=== PATIENT | female | born 1980 | race Hispanic/Latino ===

== ENCOUNTER 2017-09-10 13:26 | Emergency (ER) | payer SELFPAY ==
[~2017-09-10] VITALS: Ht 157.5 cm; Wt 127.0 kg
[~2017-09-10 13:26] MED LIST: CIPRO500 MG PO
[2017-09-10] MEDS ORDERED: DIPHENHYDRAMINE HCL 25 MG CAP PO ONE (14:15)
[2017-09-10] MEDS ORDERED: DEXAMETHASONE SOD PHOS 10 MG/1 ML VIAL INJ ONE (14:15)
[2017-09-10] MEDS ORDERED: FAMOTIDINE 20 MG TAB PO ONE (14:15)
[2017-09-10 15:32] VITALS: BP 132/101
== END 2017-09-10 15:33 | disposition home or self-care (01) ==
LOC: ER 13:26
DX: L50.0 Allergic urticaria (principal)
CPT/HCPCS: 99283; J1100

== ENCOUNTER 2017-09-12 16:19 | Emergency (ER) | payer SELFPAY ==
[~2017-09-12] VITALS: Ht 157.5 cm; Wt 127.0 kg
[2017-09-12] MEDS ORDERED: DEXAMETHASONE SOD PHOS 10 MG/1 ML VIAL INJ ONE (16:45)
== END 2017-09-12 18:26 | disposition home or self-care (01) ==
LOC: ER 16:19
DX: L50.0 Allergic urticaria (principal)
CPT/HCPCS: 99282; J1100

== ENCOUNTER 2017-11-25 14:01 | Emergency (ER) | payer SELFPAY ==
[~2017-11-25] VITALS: Ht 157.5 cm; Wt 117.9 kg
--- OUTSIDE RECORDS SUMMARY | 2017-11-25 14:03 | XMS REPORT | Continuity of Care Document ---
Author Author [facility] Organization [facility] Address [address] [place] [address] Phone Unavailable Care Team Providers Care Warp Tester Name Role Phone NO, PCP PCP Unavailable Insurance Providers Guarantor Vera Camargo Address [id number] [place] [address] Email NONE Payer María Subscriber's Name Vera Camargo Advance Directives Directive Response Recorded Date/Time Does the patient have an advance directive? No 03/07/15 2:45pm If yes, is advance directive on file with [facility]? No 03/07/15 2:45pm If not on file with [facility] will patient provide a copy? Yes 04/15/16 1:02pm Problems No problem information available. Medications Current Home Medications Medication Dose Units Route Directions Days Qty Instructions Start Date Ciprofloxacin Hcl (Cipro) 500 Mg Tablet 250 Mg Oral Every 12 Hours 7 Days Social History No social history information available. Hospital Discharge Instructions No hospital discharge instruction information available. Plan of Care Discharge Date 09/10/17 3:33pm Disposition HOME, SELF-CARE Condition at Discharge Stable Instructions/Education Provided Allergic Reaction Forms Provided Work/School Excuse Prescriptions See Medication Section Functional Status No functional status information available. Allergies, Adverse Reactions, Alerts No known allergies. Immunizations No immunization information available. Vital Signs Acute Vital Signs Vital Response Date/Time Pulse Pulse Rate (adult) 80 bpm (60 - 90) 09/10/2017 3:32pm Respiratory Rate 18 bpm (12 - 24) 09/10/2017 3:32pm Blood Pressure 132/101 mm Hg 09/10/2017 3:32pm Height 5 ft 2 in 09/10/2017 1:59pm Weight 280 lb 09/10/2017 1:59pm Body Mass Index 51.2 kg/m^2 09/10/2017 1:59pm Results Laboratory Results Test Name Result Units Flags Reference Collection Date/Time Result Date/ Time Comments White Blood Count 8.42 x10e3/uL 4.8-10.8 02/21/2017 4:02/21/2017 5 :05pm Red Blood Count 4.23 x10e6/uL 3.6-5.1 02/21/2017 4:pm 02/21/2017 5: 05pm Hemoglobin 13.4 g/dL 12.0-16.0 02/21/2017 4:02/21/2017 5:05pm Hematocrit 39.4 % 34.2-44.1 02/21/2017 4:02/21/2017 5:05pm Mean Corpuscular Volume 93.1 fL 81-99 02/21/2017 4:02/21/2017 5: 05pm Mean Corpuscular Hemoglobin 31.7 pg 28-32 02/21/2017 4:02/21/2017 5:05pm Mean Corpuscular Hemoglobin Concent 34.0 g/dL 31-35 02/21/2017 4:02/21/2017 5:05pm Red Cell Distribution Width 12.5 % 11.7-14.4 02/21/2017 4:2016 5:05pm Platelet Count 195 x10e3/uL 140-360 02/21/2017 4:02/21/2017 5: 05pm Neutrophils (%) (Auto) 63.2 % 38.7-80.0 02/21/2017 4:02/21/2017 5: 05pm Lymphocytes (%) (Auto) 27.4 % 18.0-39.1 02/21/2017 4:02/21/2017 5: 05pm Monocytes (%) (Auto) 5.6 % 4.4-11.3 02/21/2017 4:02/21/2017 5: 05pm Eosinophils (%) (Auto) 2.6 % 0.0-6.0 02/21/2017 4:02/21/2017 5: 05pm Basophils (%) (Auto) 0.5 % 0.0-1.0 02/21/2017 4:02/21/2017 5:05pm IM GRANULOCYTES % 0.7 % 0.0-1.0 02/21/2017 4:02/21/2017 5:05pm Neutrophils # (Auto) 5.3 2.1-6.9 02/21/2017 4:02/21/2017 5:05pm Lymphocytes # (Auto) 2.3 1.0-3.2 02/21/2017 4:02/21/2017 5:05pm Monocytes # (Auto) 0.5 0.2-0.8 02/21/2017 4:02/21/2017 5:05pm Eosinophils # (Auto) 0.2 0.0-0.4 02/21/2017 4:02/21/2017 5:05pm Basophils # (Auto) 0.0 0.0-0.1 02/21/2017 4:02/21/2017 5:05pm Absolute Immature Granulocyte (auto 0.06 x10e3/uL 0-0.1 02/21/2017 4: 02/21/2017 5:05pm Prothrombin Time 13.5 seconds 11.9-14.5 02/21/2017 4:02/21/2017 5: 48pm Prothromb Time International Ratio 0.98 02/21/2017 4:2016 5:48pm Oral Anticoagulant Therapy INR Values: 1. Low Intensity Therapy 1.5 - 2.0 2. Moderate Intensity Therapy 2.0 - 3.0 3. High Intensity Therapy(1) 2.5 - 3.5 4. High Intensity Therapy(2) 3.0 - 4.0 5. Panic Value INR > 5.0 Activated Partial Thromboplast Time 29.5 seconds 23.8-35.5 02/21/2017 4: 02/21/2017 5:48pm Urine Color YELLOW YELLOW 02/21/2017 3:40pm 02/21/2017 4:40pm Urine Clarity SL CLOUDY CLEAR 02/21/2017 3:40pm 02/21/2017 4:40pm Urine Specific Cotton 1.025 1.010-1.025 02/21/2017 3:40pm 2016 4:40pm Urine pH 5 5 - 7 02/21/2017 3:40pm 02/21/2017 4:40pm Urine Leukocyte Esterase 2+ H NEGATIVE 02/21/2017 3:40pm 02/21/2017 4: 40pm Urine Nitrite NEGATIVE NEGATIVE 02/21/2017 3:40pm 02/21/2017 4:40pm Urine Protein NEGATIVE NEGATIVE 02/21/2017 3:40pm 02/21/2017 4:40pm Urine Glucose (UA) NEGATIVE NEGATIVE 02/21/2017 3:40pm 02/21/2017 4: 40pm Urine Ketones NEGATIVE NEGATIVE 02/21/2017 3:40pm 02/21/2017 4:40pm Urine Urobilinogen 0.2 mg/dL 0.2 - 1 02/21/2017 3:40pm 02/21/2017 4: 40pm Urine Bilirubin NEGATIVE NEGATIVE 02/21/2017 3:40pm 02/21/2017 4: 40pm Urine Blood TRACE H NEGATIVE 02/21/2017 3:40pm 02/21/2017 4:40pm Urine WBC 21-50 /HPF H 0-5 02/21/2017 3:40pm 02/21/2017 5:53pm Urine RBC 6-10 /HPF H 0-5 02/21/2017 3:40pm 02/21/2017 5:53pm Urine Bacteria MODERATE /HPF H NONE 02/21/2017 3:40pm 02/21/2017 5:53pm Urine Epithelial Cells MODERATE /LPF NONE 02/21/2017 3:40pm 02/21/2017 5:53pm Urine Test NEGATIVE NEGATIVE 02/21/2017 3:40pm 02/21/2017 4 :39pm Sodium Level 138 mmol/L 136-145 02/21/2017 4:21pm 02/21/2017 5:12pm Potassium Level 3.6 mmol/L 3.5-5.1 02/21/2017 4:21pm 02/21/2017 5:12pm Chloride Level 104 mmol/L 98-107 02/21/2017 4:21pm 02/21/2017 5:12pm Carbon Dioxide Level 24 mmol/L 22-29 02/21/2017 4:21pm 02/21/2017 5: 12pm Anion Gap 13.6 mmol/L 8-16 02/21/2017 4:02/21/2017 5:12pm Blood Urea Nitrogen 11 mg/dL 7-02/21/2017 4:02/21/2017 5:12pm Creatinine 0.68 mg/dL 0.57-1.11 02/21/2017 4:02/21/2017 5:12pm BUN/Creatinine Ratio 16 6-25 02/21/2017 4:02/21/2017 5:12pm Estimat Glomerular Filtration Rate > 60 ML/MIN 60- 02/21/2017 4: 5:12pm Ranges were taken from the National Kidney Disease Education Program and the National Kid[employer] Foundation literature. Reference ranges: 60 or greater: Normal 16-59 (for 3 consecutive months): Chronic kidney disease 15 or less: Kidney failure Glucose Level 111 mg/dL 74-118 02/21/2017 4:02/21/2017 5:12pm Calcium Level 8.3 mg/dL L 8.4-10.2 02/21/2017 4:02/21/2017 5:12pm Total Bilirubin 0.5 mg/dL 0.2-1.2 02/21/2017 4:02/21/2017 5:12pm Aspartate Amino Transf (AST/SGOT) 26 IU/L 5-34 02/21/2017 4:2016 5:12pm Alanine Aminotransferase (ALT/SGPT) 49 IU/L 0-55 02/21/2017 4: 5:12pm Total Protein 6.9 g/dL 6.5-8.1 02/21/2017 4:02/21/2017 5:12pm Albumin 3.9 g/dL 3.5-5.0 02/21/2017 4:02/21/2017 5:12pm Globulin 3.0 g/dL 2.3-3.5 02/21/2017 4:02/21/2017 5:12pm Albumin/Globulin Ratio 1.3 0.8-2.0 02/21/2017 4:02/21/2017 5: 12pm Alkaline Phosphatase 46 IU/L 40-150 02/21/2017 4:02/21/2017 5: 12pm Procedures Procedure Status Date Provider(s) Computed tomography of abdomen and pelvis with contrast Active 02/21/17 YANIRA LYNN MD Encounters Encounter Location Arrival/Admit Date Discharge/Depart Date Attending Provider Departed Emergency [facility] 09/10/17 1:26pm 3:33pm WILNER LAU MD Departed Emergency Room [facility] 02/21/17 3:34pm 7:12pm YANIRA LYNN MD
[2017-11-25] MEDS ORDERED: MORPHINE SULFATE 4 MG/ML SYR IV STA (14:35)
[2017-11-25] MEDS ORDERED: PANTOPRAZOLE 40 MG 10ML VIAL IV STA (14:35)
[2017-11-25] MEDS ORDERED: SODIUM CHLORIDE 0.9% 1000ML 1,000 ML IV STA (14:35)
[2017-11-25] MEDS ORDERED: ONDANSETRON HCL 4 MG ORAL DISINTEGRATING TAB PO ONE (14:45)
[2017-11-25 14:46] LABS: BASOPHILS # (AUTO) 0.1 (0.0-0.1); BASOPHILS % 0.7 % (0.0-1.0); EOSINOPHILS # (AUTO) 0.3 (0.0-0.4); EOSINOPHILS % 2.9 % (0.0-6.0); HEMOGLOBIN 15.3 g/dL (12.0-16.0); LYMPHOCYTES # (AUTO) 2.2 (1.0-3.2); LYMPHOCYTES % 23.7 % (18.0-39.1); MEAN CORPUSCULAR HEMOGLOBIN 31.5 pg (28-32); MEAN CORPUSCULAR VOLUME 92.6 fL (81-99); MONOCYTES # (AUTO) 0.5 (0.2-0.8); MONOCYTES % 4.9 % (4.4-11.3); NEUTROPHILS # (AUTO) 6.2 (2.1-6.9); NEUTROPHILS % 67.1 % (38.7-80.0); PLATELET COUNT 238 x10e3/uL (140-360); RED BLOOD COUNT 4.86 x10e6/uL (3.6-5.1); RED CELL DISTRIBUTION WIDTH 12.3 % (11.7-14.4)
[2017-11-25 14:51] LABS: CLARITY,URINE CLEAR (CLEAR); COLOR,URINE YELLOW (YELLOW)
[2017-11-25 14:52] LABS: BILIRUBIN,URINE NEGATIVE (NEGATIVE); KETONES,URINE NEGATIVE (NEGATIVE); LEUKOCYTE ESTERASE ,URINE NEGATIVE (NEGATIVE); NITRITE,URINE NEGATIVE (NEGATIVE); PROTEIN,URINE DIPSTICK NEGATIVE (NEGATIVE); URINE UROBILINOGEN 0.2 mg/dL (0.2 - 1)
[2017-11-25] MEDS ORDERED: MORPHINE SULFATE 2 MG/ML SYR IV SCH (15:00)
[2017-11-25 15:01] LABS: ALANINE AMINOTRANSFERASE 62 IU/L (0-55); ALBUMIN 4.2 g/dL (3.5-5.0); ALKALINE PHOSPHATASE 63 IU/L (40-150); AMYLASE 59 U/L (25-125); ANION GAP 13.7 mmol/L (8-16); BLOOD UREA NITROGEN 7 mg/dL (7-26); BUN/CREATININE RATIO 10 (6-25); CALCIUM 9.9 mg/dL (8.4-10.2); CARBON DIOXIDE 25 mmol/L (22-29); CHLORIDE 103 mmol/L (98-107); CREATININE, SERUM 0.73 mg/dL (0.57-1.11); EST GLOMERULAR FILTRATION RATE > 60 ML/MIN (60-); GLUCOSE 143 mg/dL (74-118); LIPASE 21 U/L (8-78); POTASSIUM 3.7 mmol/L (3.5-5.1); SODIUM 138 mmol/L (136-145)
[2017-11-25 15:05] LABS: BACTERIA,URINE RARE /HPF; EPITHELIAL CELLS,URINE MODERATE /LPF; MUCUS,URINE MODERATE (RARE); RBC,URINE 0-5 /HPF (0-5); WBC,URINE (MAN) 0-5 /HPF (0-5)
[2017-11-25 17:30] VITALS: BP 119/68
== END 2017-11-25 17:41 | disposition home or self-care (01) ==
LOC: ER 14:01
CPT/HCPCS: 36415; 80053; 81001; 82150; 83690; 84702; 85025; 99283; J2270; J7030

== ENCOUNTER 2018-01-13 19:23 | Emergency (ER) | payer SELFPAY ==
[~2018-01-13] VITALS: Ht 157.5 cm; Wt 117.9 kg
[2018-01-13] MEDS ORDERED: IBUPROFEN 600 MG TAB PO STA (20:12)
[2018-01-13 20:24] LABS: BASOPHILS % 0.3 % (0.0-1.0); EOSINOPHILS # (AUTO) 0.2 (0.0-0.4); EOSINOPHILS % 1.9 % (0.0-6.0); HEMATOCRIT 38.4 % (34.2-44.1); HEMOGLOBIN 12.6 g/dL (12.0-16.0); LYMPHOCYTES % 29.9 % (18.0-39.1); MEAN CORPUSCULAR HEMOGLOBIN 31.8 pg (28-32); MEAN CORPUSCULAR HGB CONC 32.8 g/dL (31-35); MONOCYTES # (AUTO) 0.5 (0.2-0.8); MONOCYTES % 5.3 % (4.4-11.3); NEUTROPHILS # (AUTO) 6.1 (2.1-6.9); NEUTROPHILS % 61.8 % (38.7-80.0); PLATELET COUNT 146 x10e3/uL (140-360); RED BLOOD COUNT 3.96 x10e6/uL (3.6-5.1); RED CELL DISTRIBUTION WIDTH 12.9 % (11.7-14.4)
[2018-01-13 20:42] LABS: ALANINE AMINOTRANSFERASE 65 IU/L (0-55); ALBUMIN 3.7 g/dL (3.5-5.0); ALKALINE PHOSPHATASE 64 IU/L (40-150); ANION GAP 13.5 mmol/L (8-16); BLOOD UREA NITROGEN 13 mg/dL (7-26); BUN/CREATININE RATIO 17 (6-25); CALCIUM 9.8 mg/dL (8.4-10.2); CARBON DIOXIDE 26 mmol/L (22-29); CHLORIDE 104 mmol/L (98-107); CREATININE, SERUM 0.76 mg/dL (0.57-1.11); EST GLOMERULAR FILTRATION RATE > 60 ML/MIN (60-); GLUCOSE 115 mg/dL (74-118); POTASSIUM 4.5 mmol/L (3.5-5.1); SODIUM 139 mmol/L (136-145)
[2018-01-13 21:08] LABS: BILIRUBIN,URINE NEGATIVE (NEGATIVE); KETONES,URINE NEGATIVE (NEGATIVE); LEUKOCYTE ESTERASE ,URINE TRACE (NEGATIVE); NITRITE,URINE NEGATIVE (NEGATIVE); PROTEIN,URINE DIPSTICK 1+ (NEGATIVE); URINE UROBILINOGEN 1 mg/dL (0.2 - 1)
[2018-01-13 21:09] LABS: CLARITY,URINE SL CLOUDY (CLEAR); COLOR,URINE RED (YELLOW)
[2018-01-13 21:20] LABS: BACTERIA,URINE FEW /HPF; RBC,URINE >50 /HPF (0-5)
[2018-01-13 22:00] VITALS: BP 137/96
[2018-01-13] MEDS ORDERED: PROVERA10 MG PO (22:00)
== END 2018-01-13 22:09 | disposition home or self-care (01) ==
LOC: ER 19:23
DX: N93.8 Other specified abnormal uterine and vaginal bleeding (principal); J45.909 Unspecified asthma, uncomplicated
CPT/HCPCS: 36415; 80053; 81001; 84702; 85025; 99283

== ENCOUNTER 2018-09-09 20:36 | Emergency (ER) | payer SELFPAY ==
[~2018-09-09] VITALS: Ht 157.5 cm; Wt 117.9 kg
[~2018-09-09 20:36] MED LIST changes: +PROVERA10 MG PO
--- OUTSIDE RECORDS SUMMARY | 2018-09-09 20:38 | XMS REPORT ---
Author Author Admin, [place] Organization [facility] Address Unknown Phone Unavailable Allergies, Adverse Reactions, Alerts Allergy Name Reaction Description Start Date Severity Status Provider No Known Allergies Julee Good Conditions or Problems Problem Name Problem Code Onset Date Status Entry Date Provider Comment Standard Description Annotate MORBID OBESITY 278.01 Active Penny Horton MD Morbid obesity Oligomenorrhea 626.1 Active Penny Horton MD Scanty or infrequent menstruation Medication List Medication Instructions Start Date Stop Date Generic Name NDC Status Provider Patient Instruction SPRINTEC 28 0.25-35 MG-MCG ORAL TABLET 1 tab By Mouth qd NORGESTIMATE-ETH ESTRADIOL [id number] Active Penny Horton MD Active Vital Signs Date Name Value Unit Range Description blood pressure, diastolic 86 mm[Hg] BP sanches blood pressure, systolic 133 mm[Hg] BP sys height E&M 64 [in_us] Bdy height pulse rate E&M 80 /min Heart rate respiratory rate E&M 19 /min Resp rate temperature E&M 98.3 [degF] Body temperature weight E&M 305 [lb_av] Weight Measured Diagnostic Results Date Name Value Unit Range Description Lab Report: CBC With Differential/Platelet, FSH and LH, Hemoglobin A1c, ... - Chemistry 17-hydroxyprogesterone, serum or plasma <10 ng/dL ng/dL Lab Report: CBC With Differential/Platelet, FSH and LH, Hemoglobin A1c, ... - Hematology basophils as percent of blood leukocytes 0 % Not Estab. lymphocyte count, blood, automated 3.0 X10E3/UL 10*3/mm3 0.7-3.1 monocyte count, blood, automated 0.6 X10E3/UL 10*3/uL 0.1-0.9 Lab Report: CBC With Differential/Platelet, FSH and LH, Hemoglobin A1c, ... - Chemistry dehydroepiandrosterone sulfate, serum 150.7 ug/dL 57.3-279.2 immature granulocytes, percentage of total cells, blood 1 % Not Estab. Lab Report: CBC With Differential/Platelet, FSH and LH, Hemoglobin A1c, ... - Hematology mean corpuscular volume, RBC 96 fL 79-97 Lab Report: CBC With Differential/Platelet, FSH and LH, Hemoglobin A1c, ... - Chemistry human chorionic gonadotropin, total, serum <1 mIU/mL m[iU]/mL Lab Report: CBC With Differential/Platelet, FSH and LH, Hemoglobin A1c, ... - Hematology lymphocytes as percent of blood leukocytes 29 % Not Estab. erythrocyte (RBC) count 4.06 X10E6/UL 10*6/mm3 3.77-5.28 Lab Report: CBC With Differential/Platelet, FSH and LH, Hemoglobin A1c, ... - Chemistry follicle stimulating hormone, serum 2.1 m[iU]/mL Lab Report: CBC With Differential/Platelet, FSH and LH, Hemoglobin A1c, ... - Hematology platelet count 243 X10E3/UL 10*3/mm3 405-377 0378/06/28 red blood cell distribution width 13.5 % 12.3-15.4 Lab Report: CBC With Differential/Platelet, FSH and LH, Hemoglobin A1c, ... - Chemistry prolactin, serum 19.6 ng/mL 4.8-23.3 hemoglobin A1C, blood, as % of total hemoglobin 6.0 % 4.8-5.6 Lab Report: CBC With Differential/Platelet, FSH and LH, Hemoglobin A1c, ... - Hematology eosinophils as percent of blood leukocytes 1 % Not Estab. Lab Report: CBC With Differential/Platelet, FSH and LH, Hemoglobin A1c, ... - Chemistry Absolute Neutrophils 6.6 X10E3/UL 10*3/uL 1.4-7.0 Lab Report: CBC With Differential/Platelet, FSH and LH, Hemoglobin A1c, ... - Hematology basophil count, absolute 0.0 x10E3/uL 0.0-0.2 Eosinophil Absolute Count 0.2 X10E3/UL 10*3/uL 0.0-0.4 Lab Report: CBC With Differential/Platelet, FSH and LH, Hemoglobin A1c, ... - Chemistry testosterone, total 21 ng/dL 8-48 Lab Report: CBC With Differential/Platelet, FSH and LH, Hemoglobin A1c, ... - Hematology monocytes as percent of blood leukocytes 5 % Not Estab. mean corpuscular hemoglobin, RBC 32.0 pg 26.6-33.0 mean corpuscular hemoglobin concentration, RBC 33.4 G/DL % 31.5-35.7 hemoglobin, blood 13.0 g/dL 11.1-15.9 neutrophils as percent of blood leukocytes 64 % Not Estab. leukocyte count, blood 10.4 X10E3/UL 10*3/mm3 3.4-10.8 hematocrit, blood 38.9 % 34.0-46.6 Lab Report: CBC With Differential/Platelet, FSH and LH, Hemoglobin A1c, ... - Chemistry thyroid stimulating hormone, serum 1.650 u[iU]/mL 0.450-4.500 luteinizing hormone, serum 2.0 m[iU]/mL Encounters Date Encounter Provider Code Facility 15:26:54 CDT New Patient [facility] - [address] Penny Horton MD [id number] [facility] COMPENSATION INTERN
--- OUTSIDE RECORDS SUMMARY | 2018-09-09 20:38 | XMS REPORT ---
Author Author [facility] Address Unknown Phone Unavailable Care Team Providers Care Real Estate Portfolio Manager Name Role Phone Unavailable Unavailable Problems This patient has no known problems. Allergies, Adverse Reactions, Alerts This patient has no known allergies or adverse reactions. Medications This patient has no known medications.
[2018-09-09] MEDS ORDERED: ALBUTEROL/IPRATROPIUM 3 ML NEB NEB ONE (21:45)
[2018-09-09] MEDS ORDERED: DEXAMETHASONE SOD PHOS 10 MG/1 ML VIAL IM ONE (21:45)
--- NOTE | 2018-09-09 22:45 | Diagnostic Imaging Report ---
EXAMINATION: CHEST 2 VIEWS INDICATION: cough COMPARISON: None FINDINGS: PA and lateral views TUBES and LINES: None. LUNGS: Lungs are not well inflated. Lungs are clear. There is no evidence of pneumonia or pulmonary edema. PLEURA: No pleural effusion or pneumothorax. HEART AND MEDIASTINUM: The cardiomediastinal silhouette is unremarkable. BONES AND SOFT TISSUES: No acute osseous lesion. Soft tissues are unremarkable. UPPER ABDOMEN: No free air under the diaphragm. IMPRESSION: No acute thoracic abnormality. Signed by: DR. Chandan Howard MD on 09/09/2018 10:41 PM
== END 2018-09-10 00:28 | disposition home or self-care (01) ==
LOC: ER 20:36
DX: R05 Cough (principal); J45.30 Mild persistent asthma, uncomplicated
CPT/HCPCS: 71046; 99283; J1100